=== PATIENT | male | born 1935 | race African-American/Black ===

== ENCOUNTER 2022-02-22 14:56 | Emergency (ER) | payer MEDICARE, OTHER ==
[~2022-02-22] VITALS: Ht 167.6 cm; Wt 65.9 kg
[2022-02-22 15:05] VITALS: BP 156/90
[2022-02-22] MEDS ORDERED: LIDOCAINE 1% 10 ML VIAL ID ONE (16:00)
[2022-02-22] MEDS ORDERED: CEPH-558 PO (16:19)
== END 2022-02-22 17:19 | disposition home or self-care (01) ==
LOC: EMS 15:01
DX: L02.412 Cutaneous abscess of left axilla (principal); I10 Essential (primary) hypertension; E78.00 Pure hypercholesterolemia, unspecified
CPT/HCPCS: 10060; 99283; J3490